=== PATIENT | female | born 1930 | race Caucasian/White ===

== ENCOUNTER 2017-02-05 08:43 | Inpatient (IN) | payer MEDICARE, BC ==
[~2017-02-05] VITALS: Ht 172.7 cm; Wt 94.8 kg
--- NOTE | 2017-02-05 08:48 | NUR ---
PT BIB [facility] C/O CP TIGHTNESS AND PRESSURE MID-STERNAL SINCE LAST NIGHT. NOW RELIEVED S/P 1 SPRAY NITRO AND 162 ASA WARD SECRETARY. PAIN WAS 3/10 NON-RADIATING NON-PROVOKED. RESP EVEN UNLABORED. SKIN WARM NONDIAPHORETIC. NAD NOTED. IN ER BED 04 ON MONITOR. IV PRESENT WARD SECRETARY.
--- NOTE | 2017-02-05 08:50 | NUR ---
AT BEDSIDE FOR EVAL
[2017-02-05] MEDS ORDERED: ASPIRIN 81 MG TAB.CHEW ONE (08:53)
[2017-02-05] MEDS ORDERED: VANCOMYCIN 1 GM in IV D5W 250 ML IV ONE (09:00)
[2017-02-05] MEDS ORDERED: CEFTRIAXONE 1GM BAG (ER ONLY) 1 GM/50 ML PIGGYBACK IV ONE (09:00)
[2017-02-05] MEDS ORDERED: ASPIRIN 81 MG TAB.CHEW PO ONE (09:00)
--- NOTE | 2017-02-05 09:01 | NUR ---
XRAY AT BEDSIDE
[2017-02-05] MEDS ORDERED: CEFTRIAXONE 1GM BAG (ER ONLY) 50 ML IV ONE (09:20)
[2017-02-05] MEDS ORDERED: IV SET PRIMARY PUMP SET 1 EA INFUS.SET MC ONE (09:20)
[2017-02-05 09:21] LABS: BASOPHILS # (AUTO) 0.1 /CMM (0.0-0.2); BASOPHILS % (AUTO) 0.8 % (0.0-2.0); EOSINOPHILS # (AUTO) 0.4 /CMM (0.0-0.7); EOSINOPHILS % (AUTO) 3.7 % (0.0-6.0); HEMATOCRIT 44 % (33-45); HEMOGLOBIN 14.3 g/dL (11.5-14.8); LYMPHOCYTES # (AUTO) 1.8 /CMM (0.8-4.8); LYMPHOCYTES % (AUTO) 18.3 % (20.0-44.0); MEAN CORPUSCULAR HEMOGLOBIN 34 PG (26.0-33.0); MEAN CORPUSCULAR HGB CONC 33 g/dl (31.0-36.0); MEAN CORPUSCULAR VOLUME 103 fL (82-100); MONOCYTES # (AUTO) 0.8 /CMM (0.1-1.30); NEUTROPHILS # (AUTO) 6.7 /CMM (1.8-8.9); NEUTROPHILS % (AUTO) 69.2 % (43.0-81.0); PLATELET COUNT (AUTO) 470 /CMM (150-450); RDW COEFFICIENT OF VARIATION 13.4 (11.5-15.0); RED BLOOD CELL COUNT(AUTO) 4.23 MIL/uL (4.0-5.2); WHITE BLOOD COUNT (AUTO) 9.6 K/uL (4.3-11.0)
--- NOTE | 2017-02-05 09:38 | NUR ---
PT ON BEDPAN; ATTEMPTING TO PROVIDE URINE SAMPLE BEFORE ABX ADMIN
[2017-02-05 09:40] LABS: INR 1.04 (0.87-1.13); PROTHROMBIN TIME 11.1 SECS (9.5-12.7)
[2017-02-05 09:41] LABS: LACTIC ACID 0.9 mmol/L (0.4-2.0)
[2017-02-05 09:43] LABS: CALCIUM, SERUM 9.8 mg/dL (8.5-10.1); CARBON DIOXIDE 31 mmol/L (21-32); CHLORIDE 106 mmol/L (98-107); CREATININE 0.9 mg/dL (0.6-1.3); GLUCOSE 101 mg/dL (74-106); POTASSIUM 4.4 mmol/L (3.5-5.1); SODIUM SERUM 143 mmol/L (136-145); UREA NITROGEN, BLOOD 25 mg/dL (7-18)
[2017-02-05 09:50] LABS: TROPONIN I < 0.017 ng/mL (0.00-0.056)
--- NOTE | 2017-02-05 09:50 | NUR ---
PT AMBULATED TO RESTROOM WITH WALKER. US TECH WILL RETURN IN 10 MINUTES.
[2017-02-05 09:55] LABS: ALANINE AMINOTRANSFERASE 21 U/L (12-78); ALBUMIN 3.6 g/dL (3.4-5.0); ALKALINE PHOSPHATASE 91 U/L (46-116); ASPARTATE AMINOTRANSFERASE 22 U/L (15-37); B-TYPE NATRIURETIC PEPTIDE 93 PG/ML (0-125); BILIRUBIN,DIRECT 0.1 mg/dL (0.0-0.2); BILIRUBIN,TOTAL 0.4 mg/dL (0.2-1.0); TOTAL PROTEIN, SERUM 6.8 g/dL (6.4-8.2)
--- NOTE | 2017-02-05 10:14 | NUR ---
US TECH AT BEDSIDE. REPORT GIVEN TO ANGELIKA VIDAL FOR ADMISSION
--- NOTE | 2017-02-05 10:27 | NUR ---
RESTING QUIETLY, NAD NOTED. DOPPLER COMPLETED AT THIS TIME.
--- NOTE | 2017-02-05 10:42 | NUR ---
DR QUEZADA AT BEDSIDE
[2017-02-05 11:00] VITALS: BP 162/80
--- NOTE | 2017-02-05 11:00 | NUR ---
RN ADMITTING NOTES: Rec'd admission report from YOUNG Ravi. Pt transferred to Tele Unit from ER via gurney accompanied by ASHISH Ravi, and pt's son. Pt A/O x 2-3, not in any distress, denies chest pain. Pt was able to ambulate to bed w/ assist. Pt on room air, saturating at 96%, denies SOB. Pt was placed on telemonitor, SR w/ HR 62. Has L AC G18, SL, flushed, patent & intact w/ no signs of infection/ infiltration noted. Admission orientation done. Call light placed w/in reach. Instructed to call RN or PROPERTY CONTROLLER if needs assistance. Pt verbalized understanding. Provided comfort & safety measures. Will continue to monitor.
[2017-02-05] MEDS ORDERED: RIVA1PAT13 TD (11:10)
[2017-02-05] MEDS ORDERED: GABA-536 PO (11:10)
[2017-02-05] MEDS ORDERED: POTA10TA10 PO (11:10)
[2017-02-05] MEDS ORDERED: DONE10TA44 PO (11:10)
[2017-02-05] MEDS ORDERED: FURO40TA5 PO (11:10)
[2017-02-05] MEDS ORDERED: NAPR220C15 PO (11:10)
[2017-02-05] MEDS ORDERED: FLUO20CA36 PO (11:10)
[2017-02-05] MEDS ORDERED: UBID30CA11 PO (11:10)
[2017-02-05] MEDS ORDERED: VITA1TAB56 PO (11:10)
[2017-02-05] MEDS ORDERED: TRAM50TA2 PO (11:10)
[2017-02-05] MEDS ORDERED: NATE60TA4 PO (11:10)
[2017-02-05] MEDS ORDERED: PRED5TAB PO (11:10)
[2017-02-05] MEDS ORDERED: ASPI81TA2 PO (11:10)
[2017-02-05] MEDS ORDERED: LEVO125T8 PO (11:10)
[2017-02-05] MEDS ORDERED: DIAZ5TAB4 PO (11:10)
[2017-02-05] MEDS ORDERED: HYDR500C2 PO (11:10)
[2017-02-05] MEDS ORDERED: PROVASTATIN PO (11:10)
[2017-02-05] MEDS ORDERED: *INSULIN REGULAR(HUMULIN R)HUM 100 UNIT/ML VIAL SQ PRN (11:30)
[2017-02-05] MEDS ORDERED: MORPHINE SULFATE INJ 2 MG/ML DISP.SYRIN IV PRN ×2 (11:30)
[2017-02-05] MEDS ORDERED: DEXTROSE 50%-WATER 50 ML DISP.SYRIN IV PRN (11:30)
[2017-02-05] MEDS ORDERED: DOCUSATE SODIUM 100 MG CAPSULE PO PRN (11:30)
[2017-02-05] MEDS ORDERED: NITROGLYCERIN 0.4 MG/TAB BOTTLE SL PRN (11:30)
[2017-02-05] MEDS ORDERED: CARVEDILOL 6.25 MG TABLET PO SCH (11:30)
[2017-02-05] MEDS ORDERED: LEVOFLOXACIN 500 MG /D5W 100ML 100 ML IV SCH ×2 (11:30→11:42)
[2017-02-05] MEDS ORDERED: ONDANSETRON HCL/PF 4 MG/2 ML VIAL IVP PRN (11:30)
[2017-02-05] MEDS ORDERED: LORAZEPAM 1 MG TABLET PO PRN (11:30)
[2017-02-05] MEDS ORDERED: ACETAMINOPHEN 325 MG TABLET PO PRN (11:30)
[2017-02-05] MEDS ORDERED: SECONDARY IV SET 1 EA INFUS.SET MC ONE ×2 (11:44→14:44)
[2017-02-05] MEDS ORDERED: FEE PK DOSING 1 MIN EA MC ONE (11:55)
[2017-02-05] MEDS: IV NS 0.9% 1,000 ML IV PRN (12:29)
[2017-02-05 13:03] LABS: THYROID STIMULATING HORMONE 0.292 uIU/mL (0.358-3.74)
[2017-02-05] MEDS: BLOOD SUGAR DIAGNOSTIC 1 EACH STRIP VI SCH ×3 (13:34→21:22)
[2017-02-05] MEDS ORDERED: LEVOFLOXACIN 500 MG /D5W 100ML 100 ML IV ONE (14:30)
[2017-02-05] MEDS: NATEGLINIDE 60 MG TABLET PO SCH ×2 (15:13→17:54)
[2017-02-05 16:00] VITALS: BP 150/68
[2017-02-05] MEDS: AMLODIPINE BESYLATE 5 MG TABLET PO SCH (16:12)
[2017-02-05] MEDS: TRAMADOL HCL 50 MG TABLET PO SCH (17:00)
[2017-02-05] MEDS: GABAPENTIN 400 MG CAPSULE PO SCH (17:56)
--- NOTE | 2017-02-05 18:51 | NUR ---
RN CLOSING NOTES: No acute changes noted w/in shift. Pt A/O x 2-3, not in any distress, still denies chest pain or any discomfort. Tramadol withheld as pt not on any pain. Pt on room air, saturating at 96%, denies SOB. On telemonitor, still SR w/ HR 68. L AC G18, kept patent & intact w/ no signs of infection/ infiltration noted w/ NS 1L x 75 cc/hr infusing well. Call light placed w/in reach. Needs attended. Kept comfortable. Will endorse to PM RN for BONNIE.
[2017-02-05 19:54] VITALS: BP 138/59
[2017-02-05 20:00] VITALS: BP 138/59
[2017-02-05] MEDS: SIMVASTATIN 20 MG TABLET PO SCH (21:20)
[2017-02-05] MEDS: FLUOXETINE HCL 20 MG CAPSULE PO SCH (21:20)
[2017-02-05] MEDS: DONEPEZIL 5 MG TABLET PO SCH (21:20)
[2017-02-05] MEDS: METOPROLOL TARTRATE 25 MG TABLET PO SCH (21:21)
[2017-02-05 23:44] VITALS: BP 135/65
[2017-02-06] VITALS (8 sets, daily range): BP systolic 135–183; BP diastolic 65–73
[2017-02-06] MEDS: VANCOMYCIN 1 GM in IV D5W 250 ML IV SCH ×2 (03:59→21:29)
[2017-02-06 06:54] LABS: BASOPHILS # (AUTO) 0.1 /CMM (0.0-0.2); BASOPHILS % (AUTO) 0.7 % (0.0-2.0); EOSINOPHILS # (AUTO) 0.3 /CMM (0.0-0.7); EOSINOPHILS % (AUTO) 2.8 % (0.0-6.0); HEMATOCRIT 43 % (33-45); HEMOGLOBIN 14.3 g/dL (11.5-14.8); LYMPHOCYTES # (AUTO) 1.4 /CMM (0.8-4.8); LYMPHOCYTES % (AUTO) 12.3 % (20.0-44.0); MEAN CORPUSCULAR HEMOGLOBIN 35 PG (26.0-33.0); MEAN CORPUSCULAR HGB CONC 33 g/dl (31.0-36.0); MEAN CORPUSCULAR VOLUME 103 fL (82-100); MONOCYTES # (AUTO) 0.9 /CMM (0.1-1.30); NEUTROPHILS # (AUTO) 8.4 /CMM (1.8-8.9); NEUTROPHILS % (AUTO) 76.2 % (43.0-81.0); PLATELET COUNT (AUTO) 474 /CMM (150-450); RDW COEFFICIENT OF VARIATION 13.6 (11.5-15.0); RED BLOOD CELL COUNT(AUTO) 4.16 MIL/uL (4.0-5.2)
[2017-02-06 07:07] LABS: INR 1.06 (0.87-1.13); PROTHROMBIN TIME 11.4 SECS (9.5-12.7)
[2017-02-06 07:13] LABS: CALCIUM, SERUM 9.2 mg/dL (8.5-10.1); CREATININE 0.8 mg/dL (0.6-1.3); MAGNESIUM 1.9 mg/dL (1.8-2.4); PHOSPHORUS 2.5 mg/dL (2.5-4.9); POTASSIUM 3.8 mmol/L (3.5-5.1)
--- NOTE | 2017-02-06 07:15 | NUR ---
RN INITIAL NOTES: Rec'd awake on bed, A/O x2 w/ periods of confusion, not in any distress, denies chest pain. Pt on room air, saturating at 96%, denies SOB. On telemonitor, SR w/ HR 61. Has R wrist G22, PL, w/ NS 1L x 75 cc/hr infusing well, no signs of infection/ infiltration noted. Call light placed w/in reach. Instructed to call RN or MANAGER TRANSPORTATION if needs assistance. Pt verbalized understanding. Needs attended. Provided comfort & safety measures. Will continue to monitor.
[2017-02-06] MEDS: BLOOD SUGAR DIAGNOSTIC 1 EACH STRIP VI SCH ×4 (08:07→21:45)
[2017-02-06] MEDS: NATEGLINIDE 60 MG TABLET PO SCH ×3 (08:08→18:08)
[2017-02-06] MEDS: ASPIRIN 81 MG TAB.CHEW PO SCH (08:08)
[2017-02-06] MEDS: LEVOTHYROXINE SODIUM 125 MCG TABLET PO SCH (08:08)
[2017-02-06] MEDS: GABAPENTIN 400 MG CAPSULE PO SCH ×2 (08:08→18:08)
[2017-02-06] MEDS: METOPROLOL TARTRATE 25 MG TABLET PO SCH ×2 (08:08→21:30)
[2017-02-06] MEDS: DIAZEPAM 5 MG TABLET PO SCH (08:09)
[2017-02-06] MEDS: TRAMADOL HCL 50 MG TABLET PO SCH ×2 (08:09→17:00)
[2017-02-06] MEDS: predniSONE 5 MG TABLET PO SCH (08:09)
[2017-02-06] MEDS: AMLODIPINE BESYLATE 5 MG TABLET PO SCH (08:09)
[2017-02-06] MEDS: IV NS 0.9% 1,000 ML IV PRN (08:10)
[2017-02-06] MEDS: INSULIN REGULAR, HUMAN 100 UNIT/ML 3 ML VIAL SQ PRN ×3 (08:10→21:46)
[2017-02-06] MEDS ORDERED: ASPIRIN 81 MG TAB.CHEW PO SCH (09:00)
--- NOTE | 2017-02-06 09:00 | NUR ---
RN NOTES: Pt seen & examined by Dr. Jessica.
[2017-02-06] MEDS: HYDROXYUREA 500 MG CAPSULE PO SCH (10:37)
--- NOTE | 2017-02-06 12:00 | NUR ---
RN NOTES: As per son, pt is more confused today. MD made aware, responded w/ poss because of cellulitis. ID consulted.
[2017-02-06] MEDS: LEVOFLOXACIN 250 MG /D5W 50 ML 250 MG in PREMIX 1 EA IV SCH (12:49)
[2017-02-06] MEDS ORDERED: SECONDARY IV SET 1 EA INFUS.SET MC ONE (12:49)
--- NOTE | 2017-02-06 13:09 | NUR ---
WOUND CARE CONSULT: PT PRESENTS WITH LEFT HAND SKIN TEAR, PRESENT ON ADMISSION. PT ALSO NOTED TO HAVE SLIGHT REDNESS TO LOWER LEGS WITH SOME SKIN CHANGES (SCALY AREAS OF SKIN), PRESENT ON ADMISSION. PT GETS UP TO CHAIR WITH ASSISTANCE. PT CONTINENT AT THIS TIME. RECOMMENDATIONS MADE FOR WOUND CARE AND SKIN PROTECTION. DISCUSSED WITH NURSING STAFF. MD IN AGREEMENT WITH PLAN OF CARE. Addendum: 02/06/17 at 1310 by MONTY BUSTILLO WNDNU Amended: Links added.
[2017-02-06] MEDS ORDERED: Z GUARD REMEDY 2 OZ OINT TP PRN (13:30)
--- NOTE | 2017-02-06 19:04 | NUR ---
RN CLOSING NOTES: Pt A/O x 2, more confused than yesterday though not in any distress, denies chest pain or any discomfort. Tramadol withheld as pt not on any pain. Pt on room air, saturating at 95%, denies SOB. Pt removed from telemonitoring as ordered. R wrist G22, kept patent & intact w/ no signs of infection/ infiltration noted w/ NS 1L x 75 cc/hr infusing well. Pt instructed to not use bedside commode at this time due to fall risk. Put on diaper for now. Pt verbalized understanding. Family at bedside, made aware. Call light placed w/in reach. Needs attended. Kept comfortable. Will endorse to PM RN for BONNIE.
--- NOTE | 2017-02-06 19:30 | NUR ---
MS RN INITIAL NOTES RECEIVED PATIENT AWAKE A/OX1, CONFUSED, BELIEVES SHE IS AT HER HOME. REORIENTED PATIENT TO HER LOCATION, PATIENT STILL BELIEVES SHE IS NOT IN THE HOSPITAL BUT AT HER HOME. PATIENT DENIES PAIN OR DISCOMFORT. NO RESPIRATORY DISTRESS. DENIES CHEST PAIN. ALL SIDE RAILS UP FOR PATIENT SAFETY. WITH EPISODES OF ATTEMPTING TO GET OUT OF BED. SKIN WARM AND DRY TO TOUCH. SIDE RAILS UP AND LOCKED. BED KEPT AT LOWEST POSITION. CALL LIGHT KEPT WITHIN EASY REACH. WILL CONTINUE TO MONITOR.
[2017-02-06] MEDS: SIMVASTATIN 20 MG TABLET PO SCH (21:30)
[2017-02-06] MEDS: DONEPEZIL 5 MG TABLET PO SCH (21:30)
[2017-02-06] MEDS: FLUOXETINE HCL 20 MG CAPSULE PO SCH (21:30)
[2017-02-07 04:00] VITALS: BP 177/75
--- NOTE | 2017-02-07 04:00 | NUR ---
PATIENT NOTED WITH ELEVATED BP 177/75, PATIENT IRRITABLE. DENIES PAIN OR DISCOMFORT. DENIES HEADACHE. ALL NEEDS ANTICIPATED AND MET. REORIENTED NEEDED. KEPT CLEAN AND DRY. WILL CONTINUE TO MONITOR. WILL RECHECK BP.
--- NOTE | 2017-02-07 05:30 | NUR ---
NOTED PATIENT WITH INFILTRATED IV SITE. ATTEMPTED BY 3RNS TO PLACE IV LINE, UNSUCCESSFUL. WILL TRY AGAIN LATER.
[2017-02-07] MEDS ORDERED: CLONIDINE HCL 0.1 MG TABLET ONE (06:20)
--- NOTE | 2017-02-07 06:22 | NUR ---
NEW ORDERS RECEIVED FROM SANTY FOR CATAPRES 0.1MG Q8 PO PRN FOR SBP >180 OR DBP >110, AND OK FOR MIDLINE. NOTED AND CARRIED OUT.
[2017-02-07] MEDS ORDERED: CLONIDINE HCL 0.1 MG TABLET PO PRN ×2 (06:30→14:30)
[2017-02-07] MEDS: INSULIN REGULAR, HUMAN 100 UNIT/ML 3 ML VIAL SQ PRN (06:38)
--- NOTE | 2017-02-07 06:45 | NUR ---
MS RN CLOSING NOTES NO SIGNIFICANT CHANGES OVERNIGHT. ALL NEEDS ANTICIPATED AND MET. SAFETY MEASURES MET. PENDING MIDLINE PLACEMENT. ALL DUE MEDS GIVEN ORDERED. DENIES SOB. DENIES CHEST PAIN. DENIES PAIN OR DISCOMFORT. SKIN WARM AND DRY TO TOUCH. SIDE RAILS UP AND LOCKED. BED KEPT AT LOWEST POSITION. CALL LIGHT KEPT WITHIN EASY REACH. WILL ENDORSE CONTINUITY OF CARE TO AM NURSE.
--- NOTE | 2017-02-07 07:05 | NUR ---
MS RN NOTE: RECEIVED PATIENT WHILE RESTING IN BED, A/O X3. BREATHING EVEN AND UNLABORED ON ROOM AIR. NO SOB, NO DISTRESS. PATIENT DENIES CHEST PAIN. PATIENT MADE COMFORTABLE, ALL NEEDS ATTENDED TO, SAFETY MEASURES IN PLACE, WILL CONTINUE TO MONITOR.
[2017-02-07 07:45] LABS: CALCIUM, SERUM 9.6 mg/dL (8.5-10.1); CREATININE 0.7 mg/dL (0.6-1.3); POTASSIUM 3.5 mmol/L (3.5-5.1)
[2017-02-07 08:00] VITALS: BP 168/68
[2017-02-07] MEDS: HYDROXYUREA 500 MG CAPSULE PO SCH (08:15)
[2017-02-07] MEDS: LEVOTHYROXINE SODIUM 125 MCG TABLET PO SCH (08:15)
[2017-02-07] MEDS: BLOOD SUGAR DIAGNOSTIC 1 EACH STRIP VI SCH ×4 (08:15→21:26)
[2017-02-07] MEDS: GABAPENTIN 400 MG CAPSULE PO SCH ×2 (08:15→16:56)
[2017-02-07] MEDS: AMLODIPINE BESYLATE 5 MG TABLET PO SCH (08:16)
[2017-02-07] MEDS: NATEGLINIDE 60 MG TABLET PO SCH ×3 (08:16→16:56)
[2017-02-07] MEDS: METOPROLOL TARTRATE 25 MG TABLET PO SCH ×2 (08:16→21:00)
[2017-02-07] MEDS: ASPIRIN 81 MG TAB.CHEW PO SCH (08:16)
[2017-02-07] MEDS: predniSONE 5 MG TABLET PO SCH (08:16)
[2017-02-07] MEDS: TRAMADOL HCL 50 MG TABLET PO SCH ×2 (08:17→16:56)
[2017-02-07] MEDS: DIAZEPAM 5 MG TABLET PO SCH (08:17)
--- NOTE | 2017-02-07 12:00 | NUR ---
MS RN NOTE: BLOOD SUGAR CHECKED, READING 121. NO INSULIN COVERAGE REQUIRED, WILL CONTINUE TO MONITOR.
--- NOTE | 2017-02-07 13:15 | NUR ---
MS RN NOTE: PATIENT PARTICIPATED WITH PT. TOLERATED FAIRLY, ABLE TO AMBULATE WITH MAX ASSIST. WILL CONTINUE TO MONITOR.
[2017-02-07] MEDS: RIVASTIGMINE TARTRATE 4.6 MG PATCH.TD24 TD SCH (14:52)
--- NOTE | 2017-02-07 15:08 | NUR ---
MS RN NOTE: NEW MIDLINE INSERTED BY RN, JOSE. 18 GAUGE, [place]. WILL ADMINISTER LEVAQUIN NOW, ADMINISTERED LATE D/T NO IV ACCESS. WILL CONTINUE TO MONITOR.
[2017-02-07] MEDS: LEVOFLOXACIN 250 MG /D5W 50 ML 250 MG in PREMIX 1 EA IV SCH (15:13)
[2017-02-07] MEDS: IV NS 0.9% 1,000 ML IV PRN (15:13)
[2017-02-07 16:00] VITALS: BP 125/63
--- NOTE | 2017-02-07 17:15 | NUR ---
MS RN NOTE: ULTRAM NOT ADMINISTERED AT THIS TIME D/T PATIENT DENYING ANY PAIN AT THIS TIME. WILL CONTINUE TO MONITOR.
[2017-02-07] MEDS: VANCOMYCIN 0.75 GM in IV D5W 250 ML IV SCH (17:44)
--- NOTE | 2017-02-07 18:57 | NUR ---
MS RN NOTE: PATIENT RESTING IN BED, A/XO 2. BREATHING EVEN AND UNLABORED ON ROOM AIR. NO SOB, NO DISTRESS. ALL NEEDS ATTENDED TO, SAFETY MEASURES IN PLACE, WILL ENDORSE TO NIGHT SHIT FOR BONNIE.
--- NOTE | 2017-02-07 19:54 | NUR ---
RN NOTES ALL PINK STCK MED ONCE - CLEARED FOR PT SAFETY
--- NOTE | 2017-02-07 19:55 | NUR ---
RN INITIAL NOTES PT IS IN BED, HOB OF ELEVATED, A/O X2, ORIENTED PATIENT,ON ROOM AIR SATURATING AT 92, NO RESPIRATORY DISTRESS NOTED. BRP, AMBULATE WITH ASSIST. ON CARDIAC DIET. [place] MIDLINE NS 75ML/HR. NO COMPLAINT OF PAIN, NO SOB NOTED, WILL CONTINUE TO MONITOR. SIDERAILS UP, BED LOCKED AND IN LOWEST POSITION, CALLS LIGHTS WITHIN REACH.
[2017-02-07 20:00] VITALS: BP_SYST 106; BP_SYST 92; BP_DIAS 106; BP_DIAS 54
[2017-02-07] MEDS: SIMVASTATIN 20 MG TABLET PO SCH (21:17)
[2017-02-07] MEDS: DONEPEZIL 5 MG TABLET PO SCH (21:17)
[2017-02-07] MEDS: FLUOXETINE HCL 20 MG CAPSULE PO SCH (21:17)
[2017-02-08 04:00] VITALS: BP 140/57
[2017-02-08] MEDS: IV NS 0.9% 1,000 ML IV PRN (05:49)
[2017-02-08] MEDS: VANCOMYCIN 0.75 GM in IV D5W 250 ML IV SCH (05:50)
[2017-02-08] MEDS: BLOOD SUGAR DIAGNOSTIC 1 EACH STRIP VI SCH ×3 (06:36→18:09)
[2017-02-08 06:38] LABS: BASOPHILS # (AUTO) 0.2 /CMM (0.0-0.2); BASOPHILS % (AUTO) 1.2 % (0.0-2.0); EOSINOPHILS # (AUTO) 0.4 /CMM (0.0-0.7); EOSINOPHILS % (AUTO) 3.3 % (0.0-6.0); HEMATOCRIT 43 % (33-45); HEMOGLOBIN 14.2 g/dL (11.5-14.8); LYMPHOCYTES # (AUTO) 1.9 /CMM (0.8-4.8); LYMPHOCYTES % (AUTO) 14.4 % (20.0-44.0); MEAN CORPUSCULAR HEMOGLOBIN 34 PG (26.0-33.0); MEAN CORPUSCULAR HGB CONC 33 g/dl (31.0-36.0); MEAN CORPUSCULAR VOLUME 104 fL (82-100); MONOCYTES # (AUTO) 1.1 /CMM (0.1-1.30); MONOCYTES % (AUTO) 8.2 % (2.0-12.0); NEUTROPHILS # (AUTO) 9.4 /CMM (1.8-8.9); NEUTROPHILS % (AUTO) 72.9 % (43.0-81.0); PLATELET COUNT (AUTO) 459 /CMM (150-450); RDW COEFFICIENT OF VARIATION 13.9 (11.5-15.0); RED BLOOD CELL COUNT(AUTO) 4.16 MIL/uL (4.0-5.2); WHITE BLOOD COUNT (AUTO) 12.9 K/uL (4.3-11.0)
[2017-02-08 07:21] LABS: CALCIUM, SERUM 9.6 mg/dL (8.5-10.1); CREATININE 1.1 mg/dL (0.6-1.3); POTASSIUM 3.5 mmol/L (3.5-5.1)
[2017-02-08 07:56] LABS: CANNABINOID, URINE NEGATIVE (NEGATIVE); PHENCYCLIDINE SCREEN,URINE NEGATIVE (NEGATIVE)
[2017-02-08 08:00] VITALS: BP 139/55
--- NOTE | 2017-02-08 08:00 | NUR ---
MS RN AM NOTES PT IS IN BED, HOB OF ELEVATED, A/O X2, ORIENTED PATIENT,ON ROOM AIR SATURATING AT 92, NO RESPIRATORY DISTRESS NOTED. BRP, AMBULATE WITH ASSIST. ON CARDIAC DIET. LAKE MIDLINE NS 75ML/HR. NO COMPLAINT OF PAIN, NO SOB NOTED, WILL CONTINUE TO MONITOR. SIDERAILS UP, BED LOCKED AND IN LOWEST POSITION, CALLS LIGHTS WITHIN REACH.
[2017-02-08 08:07] VITALS: BP 139/55
[2017-02-08 08:09] LABS: APPEARANCE,URINE CLEAR (CLEAR); BILIRUBIN,URINE NEGATIVE (NEGATIVE); BLOOD, URINE NEGATIVE Ery/uL (NEGATIVE); COLOR,URINE YELLOW (YELLOW); KETONES,URINE NEGATIVE (NEGATIVE); LEUKOCYTE ESTERASE ,URINE NEGATIVE (NEGATIVE); NITRITE, URINE NEGATIVE (NEGATIVE); PROTEIN,URINE NEGATIVE (NEGATIVE); UGLUCOSE NEGATIVE (NEGATIVE); UROBILINOGEN,URINE 0.2 EU/dL (0.2)
[2017-02-08] MEDS: RIVASTIGMINE TARTRATE 4.6 MG PATCH.TD24 TD SCH (08:57)
[2017-02-08] MEDS: ASPIRIN 81 MG TAB.CHEW PO SCH (08:57)
[2017-02-08] MEDS: DIAZEPAM 5 MG TABLET PO SCH (08:57)
[2017-02-08] MEDS: TRAMADOL HCL 50 MG TABLET PO SCH ×2 (08:58→18:09)
[2017-02-08] MEDS: predniSONE 5 MG TABLET PO SCH (08:58)
[2017-02-08] MEDS: LEVOTHYROXINE SODIUM 125 MCG TABLET PO SCH (08:58)
[2017-02-08] MEDS: METOPROLOL TARTRATE 25 MG TABLET PO SCH (08:58)
[2017-02-08] MEDS: AMLODIPINE BESYLATE 5 MG TABLET PO SCH (08:58)
[2017-02-08] MEDS: GABAPENTIN 400 MG CAPSULE PO SCH ×2 (08:58→18:09)
[2017-02-08] MEDS: NATEGLINIDE 60 MG TABLET PO SCH ×3 (08:58→18:09)
[2017-02-08] MEDS: HYDROXYUREA 500 MG CAPSULE PO SCH (09:01)
[2017-02-08] MEDS: INSULIN REGULAR, HUMAN 100 UNIT/ML 3 ML VIAL SQ PRN (12:49)
[2017-02-08] MEDS ORDERED: CEFAZOLIN 1 GM in IV D5W 50 ML IV SCH (13:00)
[2017-02-08 16:00] VITALS: BP 102/45
--- NOTE | 2017-02-08 16:48 | NUR ---
SEEN BY MARIBEL MADERA WITH ORDERS FOR DISCHARGE TO [facility].PT'S SON,TAVON AT BEDSIDE AND MADE AWARE.NOTIFIED DR RODRÍGUEZ OF PT'S DISCHARGE TO [facility].
--- NOTE | 2017-02-08 16:54 | NUR ---
SPOKE TO GITA OF DR RODRÍGUEZ'S OFFICE AND MADE AWARE OF PT'S DISCHARGE TO [facility].
--- NOTE | 2017-02-08 18:11 | NUR ---
DISCHARGE PT TO [facility] WITH STABLE V/S VIA AMBULANCE.REPORT CALLED IN TO [facility].
== END 2017-02-08 18:09 | DRG 602 ==
LOC: ER 08:45 → MED 10:46 → TELE1 10:57 → MEDSG1 02-06 18:11
PROVIDERS: ADMIT Internal Medicine; ATTEND Internal Medicine
PROC: 05H533Z Insertion of Infusion Device into Right Subclavian Vein, Percutaneous Approach (ICD-10-PCS; principal; 2017-02-07)
DX: L03.115 Cellulitis of right lower limb (principal); G93.41 Metabolic encephalopathy; L03.116 Cellulitis of left lower limb; N18.1 Chronic kidney disease, stage 1; I12.9 Hypertensive chronic kidney disease with stage 1 through stage 4 chronic kidney disease, or unspecified chronic kidney disease; E11.22 Type 2 diabetes mellitus with diabetic chronic kidney disease; E78.5 Hyperlipidemia, unspecified; G30.9 Alzheimer's disease, unspecified; F02.80 Dementia in other diseases classified elsewhere, unspecified severity, without behavioral disturbance, psychotic disturbance, mood disturbance, and anxiety; Z79.899 Other long term (current) drug therapy; Z85.3 Personal history of malignant neoplasm of breast; Z87.891 Personal history of nicotine dependence; E03.9 Hypothyroidism, unspecified; E53.8 Deficiency of other specified B group vitamins; I20.9 Angina pectoris, unspecified; D64.9 Anemia, unspecified; D75.89 Other specified diseases of blood and blood-forming organs; R79.89 Other specified abnormal findings of blood chemistry; F41.9 Anxiety disorder, unspecified
CPT/HCPCS: 36415; 36569; 71010-TC; 80048-TC; 80061-TC; 80076-TC; 80202-TC; 80305; 81000-TC; 82150-TC; 82746; 82962-TC; 83540-TC; 83605-TC; 83690-TC; 83735-TC; 83880; 84100-TC; 84443-TC; 84484-TC; 85025-TC; 85610-TC; 85730-TC; 87040-TC; 87081-TC; 87086-TC; 93307-TC; 93970-TC; 97001-TC; 97116-TC; 97530-TC; A4216; A4606; J0690; J0696; J1815; J1956; J3370; J7030; J7060; J7512; Z7610